=== PATIENT | male | born 1960 | race Caucasian/White ===

== ENCOUNTER 2019-06-23 11:53 | Emergency (ER) | payer BC ==
[~2019-06-23] VITALS: Ht 180.3 cm; Wt 86.2 kg
[2019-06-23] MEDS ORDERED: VENTOLIN HFA 1818 GM INH (13:07)
[2019-06-23] MEDS ORDERED: LEVAQUIN 750 M750 MG PO (13:07)
[2019-06-23 13:21] VITALS: BP 129/73
== END 2019-06-23 13:22 | disposition home or self-care (01) ==
LOC: M.ERS 11:53
DX: J18.9 Pneumonia, unspecified organism (principal); F17.210 Nicotine dependence, cigarettes, uncomplicated